=== PATIENT | female | born 1995 | race Asian ===

== ENCOUNTER 2016-10-05 17:48 | Emergency (ER) | payer OTHER ==
[2016-10-05 17:54] VITALS: BP 119/69
--- NOTE | 2016-10-05 18:08 | UC ---
Skin Complaint HPI - HPI Summary HPI Summary: complaint of cellulitis on her left foot that started last year recently she scratched her leg and then the ankle has become red and swollen feels hot and sometimes it is painful using cold pack with relief has been on antibiotics for infection multiple times- staph aureus used hydrocortisone with some relief at first denies fever and chills - History of Current Complaint Chief Complaint: UCSkin Time Seen by Provider: 10/05/16 17:58 Stated Complaint: SKIN INFECTION-LOWER LEG Hx Obtained From: Patient Hx Last Menstrual Period: 1 MONTH AGO - Allergy/Home Medications Allergies/Adverse Reactions: Allergies Allergy/AdvReac Type Severity Reaction Status Date / Time No Known Allergies Allergy Verified 10/05/16 17:54 Home Medications: Home Medications Topical Steroid Cream* PRN 10/05/16 [History] Review of Systems Constitutional: Negative Skin: Rash Eyes: Negative ENT: Negative Respiratory: Negative Cardiovascular: Negative Gastrointestinal: Negative Genitourinary: Negative Motor: Negative Neurovascular: Negative Musculoskeletal: Negative Neurological: Negative Psychological: Negative All Other Systems Reviewed And Are Negative: Yes PMH/Surg Hx/FS Hx/Imm Hx Previously Healthy: No - recurrent cellulitis - Surgical History Surgical History: None - Family History Known Family History: Negative: Cardiac Disease, Hypertension, Diabetes - Social History Occupation: Employed Full-time Lives: With Family Alcohol Use: Rare Substance Use Type: None Smoking Status (MU): Never Smoked Tobacco Physical Exam Triage Information Reviewed: Yes Appearance: No Pain Distress, Well-Nourished Vital Signs: Initial Vital Signs Temp 98.4 F 10/05/16 17:51 Pulse 88 10/05/16 17:51 Resp 16 10/05/16 17:51 BP 119/69 10/05/16 17:51 Pulse Ox 100 10/05/16 17:51 Vital Signs Reviewed: Yes Eyes: Positive: Conjunctiva Clear ENT: Positive: Pharynx normal, TMs normal Neck: Positive: No Lymphadenopathy Respiratory: Positive: Lungs clear, Normal breath sounds, No respiratory distress, No accessory muscle use Cardiovascular: Positive: RRR, No Murmur, Pulses Normal Abdomen Description: Positive: Nontender, Soft Bowel Sounds: Positive: Present Musculoskeletal Exam: Normal Neurological Exam: Normal Neurological: Positive: Alert Psychological Exam: Normal Skin: Positive: Other - LLE- [id number] area of erythema surrounding 2 scabbed over areas front of ankle Course/Dx - Differential Diagnoses - Skin Complaint Differential Diagnoses: Cellulitis - Diagnoses Provider Diagnoses: cellulitis- left ankle Discharge - Discharge Plan Condition: Stable Disposition: HOME Prescriptions: Sulfamethox/Trimethoprim DS* [Bactrim DS 800/160 TAB*] 1 tab PO BID #20 tab Patient Education Materials: Cellulitis (ED) Referrals: [facility] [Outside] Additional Instructions: CELLULITIS What is Cellulitis? Cellulitis is a bacterial infection of the skin and, sometimes, of the tissues beneath the skin. The skin normally has many types of bacteria on it, but intact skin is an effective barrier that keeps bacteria from entering and growing within the body. When there is a break in the skin, bacteria can enter the body and grow there, causing infection. The infection usually affects outer layers of the skin first, and then spreads deeper into body tissues. Cellulitis can affect any area of the body covered by skin, but it is most common on the face or lower part of the legs. Symptoms Might Include: Skin redness that increases in size as the infection spreads Tight, glossy, "stretched" appearance of the skin Pain or tenderness of the area The affected area may be warm or hot to the touch A thin red line (along a vein) from the cellulitis toward the heart Fever Chills, shaking Muscle aches pains Joint stiffness because of swelling around a joint Treatment Recommendations: The healthcare provider may have prescribed an antibiotic medicine. The medicine should be taken until it is completely gone, even if you are feeling better. If you stop taking the medicine early, the infection may not be completely gone, and the medication may not work the next time. If the infection is on your arm or leg, keep it elevated. You may use warm, wet compresses to relieve the pain and help healing. Soak a clean cloth in warm water, wring it out a little, and apply it to the affected site. Leave the soak in place for 15 minutes and repeat often throughout the day. Rest until the fever is gone and the pain and redness have lessened. You may take ibuprofen (Motrin, Advil), or acetaminophen (Tylenol) for pain. These will help ease some of the symptoms but will not cure the infection. Call Your Doctor or Return Here IF: Your fever does not go down with treatment, or it increases to more than 101 F. You are not starting to get better with the treatment within 24 to 36 hours. You have increasing pain, swelling, or chills. You feel drowsy and lethargic, or you have vomiting or diarrhea. You find the redness is spreading or there are red streaks coming from the infected area. The joint or bone under the infected skin becomes painful after the skin has started to heal. You have any new symptoms that worry you.
== END 2016-10-05 18:27 | disposition home or self-care (01) ==
LOC: UCEAST 17:48
DX: L03.116 Cellulitis of left lower limb (principal)
CPT/HCPCS: 99202; G0463

== ENCOUNTER 2016-10-08 11:04 | Emergency (ER) | payer OTHER ==
[2016-10-08] MEDS ORDERED: Vancomycin(*) 1,500 MG in NS 0.9% 250 ML* 250 ML IVPB ONE (11:27)
[2016-10-08] MEDS ORDERED: Vancomycin(*) 1,000 MG in NS 0.9% 250 ML* 250 ML IVPB ONE (11:28)
[2016-10-08 11:54] LABS: Hematocrit 43 % (35-47); Hemoglobin 13.9 g/dl (12.0-16.0); Mean Corpuscular HGB Conc 33 g/dl (31-36); Mean Corpuscular Hemoglobin 30 pg (27-31); Mean Corpuscular Volume 93 fL (80-97); Mean Platelet Volume 7 um3 (7.4-10.4); Red Blood Count 4.59 10^6/ul (4.0-5.4); Red Cell Distribution Width 14 % (10.5-15); White Blood Count 4.9 10^3/ul (3.5-10.8)
[2016-10-08 12:10] LABS: ALT 7 U/L (7-52); Albumin 4.3 g/dL (3.2-5.2); Alkaline Phosphatase 37 U/L (34-104); Blood Urea Nitrogen 9 mg/dL (6-24); C Reactive Protein < 1.00 mg/L (< 5.00); CO2 Carbon Dioxide 25 mmol/L (22-32); Calcium 9.5 mg/dL (8.6-10.3); Chloride 104 mmol/L (101-111); EGFR African American 126.7 (>60); EGFR Non-African American 98.5 (>60); Globulin 3.4 g/dL (2-4); Glucose 92 mg/dL (70-100); Sodium 135 mmol/L (133-145); Total Protein 7.7 g/dL (6.4-8.9)
[2016-10-08 12:33] LABS: Anion Gap 6 mmol/L (2-11)
[2016-10-08 13:08] LABS: Erythrocyte Sed Rate 12 mm/Hr (0-14)
[2016-10-08] MEDS ORDERED: Ibuprofen TAB* 600 MG PO ONE (13:37)
[2016-10-08] MEDS ORDERED: diPHENhydraMINE IV* 50 MG/ML 1 ml VIAL (BENADRYL) IV ONE (13:37)
--- NOTE | 2016-10-08 14:14 | ED ---
Skin Complaint - HPI Summary HPI Summary: Patient presents to ED with skin infection to the right lower leg and ankle which has been worsening. She states she was seen at 3 days ago and given bactrim, but feels as though it is worsening. At there was redness with some blistering. Today, she notes to weeping lesions and worsening erythema which has been spreading slowly. 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 She denies fevers, sweats, chills or other complaints. She had something similar 1 year ago, was diagnosed with MRSA and given appropriate treatment and has had no other complications since that time. She is a student , non-smoker and lives with family. - History of Current Complaint Chief Complaint: EDRashSkinAbscess Time Seen by Provider: 10/08/16 11:15 Stated Complaint: LEFT LEG INFECTION Hx Obtained From: Patient Hx Last Menstrual Period: 1 MONTH AGO Onset/Duration: Started Days Ago Skin Exposure Onset/Duration: Days Ago Timing: Constant Onset Severity: Moderate Current Severity: Moderate Pain Intensity: 1 Pain Scale Used: 0-10 Numeric Skin Location: Discrete - right ankle Character: Pain, Redness, Raised Aggravating Symptom(s): Touch Alleviating Symptom(s): Nothing Associated Signs & Symptoms: Negative Related History: Possible Reaction to: Environmental Exposure - Allergy/Home Medications Allergies/Adverse Reactions: Allergies Allergy/AdvReac Type Severity Reaction Status Date / Time No Known Allergies Allergy Verified 10/05/16 17:54 PMH/Surg Hx/FS Hx/Imm Hx Previously Healthy: Yes - Immunization History Hx Pertussis Vaccination: No Immunizations Up to Date: Unable to Obtain/Confirm Infectious Disease History: No Infectious Disease History: Denies: Traveled Outside the [place] in Last 30 Days - Family History Known Family History: Negative: Cardiac Disease, Hypertension, Diabetes - Social History Occupation: Employed Full-time Lives: With Family Alcohol Use: Rare Hx Substance Use: No Substance Use Type: Reports: None Smoking Status (MU): Never Smoked Tobacco Review of Systems Constitutional: Negative Eyes: Negative Cardiovascular: Negative Respiratory: Negative Positive: no symptoms reported, see HPI Musculoskeletal: Negative Positive: Rash Neurological: Negative All Other Systems Reviewed And Are Negative: Yes Physical Exam Triage Information Reviewed: Yes Vital Signs On Initial Exam: Initial Vitals Temp Pulse Resp BP Pulse Ox 96.7 F 77 16 119/80 99 08/05/17 11:08 10/08/16 11:08 10/08/16 11:08 10/08/16 11:08 10/08/16 11:08 Vital Signs Reviewed: Yes Appearance: Positive: Well-Appearing, Well-Nourished Skin: Positive: Warm, Skin Color Reflects Adequate Perfusion, Other - area covering the right ankle, dorsum of foot and to the right lower leg with small pustules with weeping yellow serous drainage throughout the wound. There is erythema under and surrounding the weeping lesions. Eyes: Positive: EOMI, KITTY, Conjunctiva Clear Neck: Positive: Supple, No Lymphadenopathy Respiratory/Lung Sounds: Positive: Clear to Auscultation, Breath Sounds Present Cardiovascular: Positive: Normal, RRR, Pulses are Symmetrical in both Upper and Lower Extremities Musculoskeletal: Positive: Normal, Strength/ROM Intact Neurological: Positive: Sensory/Motor Intact, Alert, Oriented to Person Place, Time, Speech Normal Psychiatric: Positive: Normal - Pretty Coma Scale Coma Scale Total: 15 Diagnostics - Vital Signs Vital Signs Temp Pulse Resp BP Pulse Ox 10/08/16 11:21 96.7 F 77 16 119/80 99 10/08/16 11:08 96.7 F 16 119/80 99 - Laboratory Lab Results: Lab Results 10/08/16 10/08/16 Range/Units 11:41 11:41 WBC 4.9 (3.5-10.8) 10^3/ul RBC 4.59 (4.0-5.4) 10^6/ul Hgb 13.9 (12.0-16.0) g/dl Hct 43 (35-47) % MCV 93 (80-97) fL MCH 30 (27-31) pg MCHC 33 (31-36) g/dl RDW 14 (10.5-15) % Plt Count 246 (150-450) 10^3/ul MPV 7 L (7.4-10.4) um3 Neut % (Auto) 54.6 (38-83) % Lymph % (Auto) 25.8 (25-47) % [place] % (Auto) 12.2 H (1-9) % Eos % (Auto) 6.5 H (0-6) % Baso % (Auto) 0.9 (0-2) % Absolute Neuts (auto) 2.7 (1.5-7.7) 10^3/ul Absolute Lymphs (auto) 1.3 (1.0-4.8) 10^3/ul Absolute Monos (auto) 0.6 (0-0.8) 10^3/ul Absolute Eos (auto) 0.3 (0-0.6) 10^3/ul Absolute Basos (auto) 0 (0-0.2) 10^3/ul Absolute Nucleated RBC 0 10^3/ul Nucleated RBC % 0 ESR 12 (0-14) mm/Hr Sodium 135 (133-145) mmol/L Potassium TNP Chloride 104 (101-111) mmol/L Carbon Dioxide 25 (22-32) mmol/L Anion Gap 6 (2-11) mmol/L BUN 9 (6-24) mg/dL Creatinine 0.75 (0.51-0.95) mg/dL Est GFR ( Amer) 126.7 (>60) Est GFR (Non-Af Amer) 98.5 (>60) BUN/Creatinine Ratio 12.0 (8-20) Glucose 92 (70-100) mg/dL Calcium 9.5 (8.6-10.3) mg/dL Total Bilirubin 0.80 (0.2-1.0) mg/dL AST TNP ALT 7 (7-52) U/L Alkaline Phosphatase 37 (34-104) U/L C-Reactive Protein < 1.00 (< 5.00) mg/L Total Protein 7.7 (6.4-8.9) g/dL Albumin 4.3 (3.2-5.2) g/dL Globulin 3.4 (2-4) g/dL Albumin/Globulin Ratio 1.3 (1-3) Result Diagrams: 10/08/16 11:41 10/08/16 11:41 Lab Statement: Any lab studies that have been ordered have been reviewed, and results considered in the medical decision making process. Course/Dx - Course Course Of Treatment: area covering the right ankle, dorsum of foot and to the right lower leg with small pustules with weeping yellow serous drainage throughout the wound. There is erythema under and surrounding the weeping lesions. She was placed on Bactrim 3 days ago, and wound was not cultured at the time. Today, she is given 1000mg vancomycin and started on Keflex to cover strep, post-strep species and viridans. This, however does not cover clostridium and will await culture results to possibly change the antibiotics. No systemic infection is found and she is able to be discharged and await further results. - Differential Diagnoses - Skin Complaint Differential Diagnoses: Abscess, Cellulitis, Drug Rash, Varicella Zoster - Diagnoses Provider Diagnoses: Cellulitis of ankle Discharge - Discharge Plan Condition: Stable Disposition: HOME Prescriptions: Cephalexin CAP* [Keflex CAP*] 500 mg PO QID #28 cap MDD 4 Patient Education Materials: Cellulitis (ED) Additional Instructions: Take Keflex four times daily for 7 days Continue with bactrim as prescribed Hydroxyzine for itching up to three times daily Benadryl only at night 25mg If symptoms become worse, return to the ED We will call with any antibiotic changes Please follow up with PCP Images - Images Full Body (No Head): 1 - area covering the right ankle, dorsum of foot and to the right lower leg with small pustules with weeping yellow serous drainage throughout the wound. There is erythema under and surrounding the weeping lesions.
[2016-10-08 15:31] VITALS: BP 97/52
== END 2016-10-08 15:30 | disposition home or self-care (01) ==
LOC: ED 11:04
DX: L03.116 Cellulitis of left lower limb (principal); Z86.14 Personal history of Methicillin resistant Staphylococcus aureus infection
CPT/HCPCS: 36415; 80053; 85025; 85652; 86140; 87040; 87070; 87205; 96365; 96366; 96375; 99282; A9270-GY; J1200; J3370